=== PATIENT | female | born 1960 | race Caucasian/White ===

== ENCOUNTER 2020-10-07 05:37 | Day surgery (SDC) | payer BC ==
[2020-10-04 14:51] VITALS: BMI 25.6
[2020-10-07 09:46] VITALS: TEMP 97.8
[2020-10-07 10:19] VITALS: BP 105/65; PULSE 55
== END 2020-10-07 10:35 | disposition home or self-care (01) ==
LOC: JASU-ENDO 05:37
PROVIDERS: ATTEND Internal Medicine Gastroenterology
PROC: 0DBK8ZX Excision of Ascending Colon, Via Natural or Artificial Opening Endoscopic, Diagnostic (ICD-10-PCS; principal; 2020-10-07 10:00)
DX: Z12.11 Encounter for screening for malignant neoplasm of colon (principal); D12.2 Benign neoplasm of ascending colon; K57.30 Diverticulosis of large intestine without perforation or abscess without bleeding; K64.8 Other hemorrhoids; Z80.0 Family history of malignant neoplasm of digestive organs; R10.84 Generalized abdominal pain; E03.9 Hypothyroidism, unspecified; E78.5 Hyperlipidemia, unspecified; J45.909 Unspecified asthma, uncomplicated; D64.9 Anemia, unspecified
CPT/HCPCS: 88305-TC

== ENCOUNTER 2020-12-11 21:35 | Emergency (ER) | payer BC ==
[2020-12-11 21:45] VITALS: BP 112/66; PULSE 74; TEMP 98; BMI 25.7
[2020-12-11] MEDS ORDERED: LIDOCAINE PATCH REMOVAL MC SCH (22:00)
[2020-12-11] MEDS ORDERED: SODIUM CHLORIDE 0.9% 500 ML INFUS.BAG IV ONE (23:19)
[2020-12-11] MEDS ORDERED: METOCLOPRAMIDE HCL INJECTION 10 MG/2 ML VIAL IVPUSH ONE (23:19)
[2020-12-11] MEDS ORDERED: LIDOCAINE 5% TOPICAL PATCH TP ONE (23:19)
[2020-12-11] MEDS ORDERED: ACETAMINOPHEN 1000 MG/100 ML VIAL (NON FORMULARY) IVPB ONE (23:19)
[2020-12-11] MEDS ORDERED: METOCLOPRAMIDE HCL INJECTION 10 MG/2 ML VIAL ONE (23:23)
[2020-12-11] MEDS ORDERED: ACETAMINOPHEN INJECTION 100 ML IVPB ONE (23:23)
[2020-12-11] MEDS ORDERED: LIDOCAINE 5% TOPICAL PATCH ONE (23:24)
[2020-12-11 23:51] LABS: BASO % 0.6 % (0-2.0); EOS % 5.9 % (0-4.5); HEMOGLOBIN 10.6 GM/dL (10.7-15.3); LYMPH % 22.6 % (8-40); MCH 31.7 pg (25.7-33.7); MCHC 34.2 g/dl (32.0-36.0); MEAN CELL VOLUME 92.6 fl (80-96); MEAN PLT VOLUME 7.8 fl (7.5-11.1); MONO % 8.5 % (3.8-10.2); NEUT % 62.4 % (42.8-82.8); PLATELET COUNT 227 K/MM3 (134-434); RBC 3.35 M/mm3 (3.60-5.2); RDW 12.2 % (11.6-15.6); WHITE BLOOD COUNT 6.7 K/mm3 (4.0-10.0)
[2020-12-11 23:59] LABS: INR 0.9 (0.83-1.09); PROTHROMBIN TIME (PATIENT) 10.9 SEC (9.7-13.0)
[2020-12-12 00:13] LABS: CHLORIDE 109 mmol/L (98-107); SODIUM 142 mmol/L (136-145)
[2020-12-12 00:16] LABS: ANION GAP 6 MMOL/L (8-16); BLOOD UREA NITROGEN 20.9 mg/dL (7-18); CALCIUM 8.5 mg/dL (8.5-10.1); CO2 27 mmol/L (21-32); GLUCOSE,RANDOM 100 mg/dL (74-106); MAGNESIUM 2.2 mg/dL (1.8-2.4)
[2020-12-12 00:17] LABS: LIPASE 91 U/L (73-393)
[2020-12-12 00:19] LABS: CREATININE 0.8 mg/dL (0.55-1.3); PHOSPHOROUS 3.6 mg/dL (2.5-4.9); SGOT/AST 15 U/L (15-37); SGPT/ALT 20 U/L (13-61)
[2020-12-12 00:21] LABS: BILIRUBIN,TOTAL 0.2 mg/dL (0.2-1); TOT PROT 6.8 g/dl (6.4-8.2)
[2020-12-12 00:22] LABS: ALK PHOS 105 U/L (45-117)
[2020-12-12] MEDS ORDERED: IBUPROFEN 600 MG TABLET (FP) PO ONE ×2 (03:27→03:34)
== END 2020-12-12 04:34 | disposition home or self-care (01) ==
LOC: JER 21:35
PROC: 3E0333Z Introduction of Anti-inflammatory into Peripheral Vein, Percutaneous Approach (ICD-10-PCS; principal; 2020-12-11)
PROC: 3E033GC Introduction of Other Therapeutic Substance into Peripheral Vein, Percutaneous Approach (ICD-10-PCS; 2020-12-11)
DX: R07.9 Chest pain, unspecified (principal); M54.5 Low back pain; R91.1 Solitary pulmonary nodule
CPT/HCPCS: 36415; 71275-TC; 80053; 82550; 83690; 83735; 84100; 84443; 84484; 85025; 85610; 93005; 93010; 93970-TC; 99285-25; J0131

== ENCOUNTER 2021-11-05 04:23 | Day surgery (SDC) | payer BC ==
[2021-11-05 08:30] VITALS: BMI 23.9
[2021-11-05 09:30] VITALS: TEMP 98
[2021-11-05 10:06] VITALS: BP 111/71; PULSE 67
== END 2021-11-05 11:24 | disposition home or self-care (01) ==
LOC: JASU-ENDO 04:23
PROVIDERS: ATTEND Internal Medicine Gastroenterology
PROC: 0DB78ZX Excision of Stomach, Pylorus, Via Natural or Artificial Opening Endoscopic, Diagnostic (ICD-10-PCS; 2021-11-05)
PROC: 0DB28ZX Excision of Middle Esophagus, Via Natural or Artificial Opening Endoscopic, Diagnostic (ICD-10-PCS; 2021-11-05)
PROC: 0DB38ZX Excision of Lower Esophagus, Via Natural or Artificial Opening Endoscopic, Diagnostic (ICD-10-PCS; 2021-11-05)
PROC: 0DB98ZX Excision of Duodenum, Via Natural or Artificial Opening Endoscopic, Diagnostic (ICD-10-PCS; principal; 2021-11-05 10:00)
DX: K29.50 Unspecified chronic gastritis without bleeding (principal)
CPT/HCPCS: 88305-TC; 88342-TC

== ENCOUNTER 2022-01-30 13:27 | Emergency (ER) | payer BC ==
[2022-01-30 13:48] VITALS: BP 110/61; PULSE 73; TEMP 97.5; BMI 23.3
[2022-01-30 15:10] LABS: BASO % 0.6 % (0-2.0); EOS % 1.1 % (0-4.5); HEMATOCRIT 32.3 % (32.4-45.2); HEMOGLOBIN 11.3 GM/dL (10.7-15.3); LYMPH % 23.4 % (8-40); MCH 31.9 pg (25.7-33.7); MEAN PLT VOLUME 7.7 fl (7.5-11.1); MONO % 6.9 % (3.8-10.2); PLATELET COUNT 232 10^3/uL (134-434); RBC 3.55 M/mm3 (3.60-5.2); RDW 12.3 % (11.6-15.6); WHITE BLOOD COUNT 5.4 K/mm3 (4.0-10.0)
[2022-01-30 15:31] LABS: CALCIUM 9.1 mg/dL (8.5-10.1)
[2022-01-30 15:32] LABS: BLOOD UREA NITROGEN 13.5 mg/dL (7-18); PH,URINE 6.5 (5.0-8.0); URINE APPEARANCE CLEAR; URINE BILIRUBIN NEGATIVE (NEGATIVE); URINE COLOR YELLOW; URINE GLUCOSE (UA) NEGATIVE (NEGATIVE); URINE KETONE NEGATIVE (NEGATIVE); URINE LEUK ESTERASE NEGATIVE (NEGATIVE); URINE NITRITE NEGATIVE (NEGATIVE); URINE PROTEIN NEGATIVE (NEGATIVE); URINE UROBILINOGEN 0.2 mg/dL (0.2-1.0)
[2022-01-30 15:35] LABS: CREATININE 0.6 mg/dL (0.55-1.3)
[2022-01-30 15:36] LABS: TOT PROT 6.9 g/dl (6.4-8.2)
[2022-01-30 15:37] LABS: BILIRUBIN,TOTAL 0.4 mg/dL (0.2-1)
[2022-01-30] MEDS ORDERED: KETOROLAC TROMETHAMINE 30 MG/1 ML VIAL IVPUSH ONE (17:00)
[2022-01-30] MEDS ORDERED: KETOROLAC TROMETHAMINE 30 MG/1 ML VIAL ONE (17:02)
== END 2022-01-30 17:09 | disposition home or self-care (01) ==
LOC: JER 13:27
PROC: 3E0333Z Introduction of Anti-inflammatory into Peripheral Vein, Percutaneous Approach (ICD-10-PCS; principal; 2022-01-30)
DX: N30.00 Acute cystitis without hematuria (principal)
CPT/HCPCS: 36415; 76775-TC; 76856-TC; 80053; 81003; 85025; 87086; 99285-25

== ENCOUNTER 2025-04-13 06:11 | Day surgery (SDC) | payer BC ==
[2025-04-12 11:12] VITALS: BMI 22.8
[2025-04-13 12:46] VITALS: TEMP 97.5
[2025-04-13 12:51] VITALS: RESP 15
[2025-04-13 13:20] VITALS: BP 112/69; PULSE 60
== END 2025-04-13 13:43 | disposition home or self-care (01) ==
LOC: JASU-ENDO 06:11
PROVIDERS: ATTEND Internal Medicine Gastroenterology
PROC: 0DB78ZX Excision of Stomach, Pylorus, Via Natural or Artificial Opening Endoscopic, Diagnostic (ICD-10-PCS; 2025-04-13)
PROC: 0DB68ZX Excision of Stomach, Via Natural or Artificial Opening Endoscopic, Diagnostic (ICD-10-PCS; 2025-04-13)
PROC: 0DB98ZX Excision of Duodenum, Via Natural or Artificial Opening Endoscopic, Diagnostic (ICD-10-PCS; principal; 2025-04-13 12:00)
DX: K29.50 Unspecified chronic gastritis without bleeding (principal)
CPT/HCPCS: 88305-TC; 88342-TC